=== PATIENT | female | born 1970 | race African-American/Black ===

== ENCOUNTER 2018-11-09 01:05 | Emergency (ER) | payer OTHER ==
[2018-11-09 01:11] VITALS: BP 147/91; PULSE 81; TEMP 98.2; BMI 27.0
--- NOTE | 2018-11-09 01:14 | PDOC ---
History of Present Illness - General Chief Complaint: Allergic Reaction Stated Complaint: LIP SWELLING Time Seen by Provider: 11/09/18 01:13 History Source: Patient Exam Limitations: No Limitations - History of Present Illness Initial Comments: 11/09/18 01:25 This is a 48-year-old female with history of hypertension who takes Lotrel for her hypertension. Patient comes in complaining of progressive swelling of her lips. Patient denies any swelling of her throat or tongue. Patient denies any history of similar symptoms in the past. Patient said symptoms began this afternoon she took some Benadryl about 3:00 this afternoon as well as this evening with some improvement of his symptoms but then she will much worse so comes in for evaluation. She denies any shortness of breath, rashes, itching or any other complaints. Allergies: None Past Medical History: none Social history: Lives with family. No smoking. No alcohol. No illicit drugs. Surgical history: None General: No fevers or chills, no weakness, no weight loss HEENT: No change in vision. No sore throat,. No ear pain, angioedema of the lips CardioVascular: no chest discomfort. No shortness of breath Respiratory:No cough, or wheezing. Gastrointestinal: no nausea, vomiting, diarrhea or constipation, No rectal bleeding Genitourinary: No dysuria, hematuria, or frequency Musculoskeletal: No joint or muscle pain or swelling Neurologic: No headache, vertigo, dizziness or loss of consciousness Psychiatric: nor depression Skin: No rashes or easy bruising Endocrine: no increased thirst or abnormal weight change Allergic: no skin or latex allergy All other systems reviewed and normal Exam: General: Well-nourished well-developed individual, no acute distress HEENT: Throat: Normal, tonsils normal, no erythema or exudate, there is marked angioedema of the lips no angioedema of the throat or tongue Neck: Supple, no meningeal signs, no lymphadenopathy Eyes::Pupils equal reactive and round, extraocular motion intact Chest: Nontender to palpation Cardiac: S1-S2 normal, regular rate and rhythm, no murmurs rubs or gallops Respiratory: Lungs clear to auscultation bilateral Abdomen: Soft, nondistended, normal bowel sounds, there is no tenderness on palpation diffusely Extremities: Warm, dry, no cyanosis, clubbing, or edema Skin: No rashes Neuro: Alert and oriented x3, CN II - XII intact, nonfocal exam with normal strength, normal sensation, normal reflexes, normal gait, Psych: Normal mood and affect Past History - Past Medical History Allergies/Adverse Reactions: Allergies Allergy/AdvReac Type Severity Reaction Status Date / Time No Known Allergies Allergy Verified 05/01/12 20:47 Home Medications: Ambulatory Orders Methylprednisolone [Medrol Dose Aryan] 4 mg PO ASDIR #21 tablet 11/09/18 COPD: No HTN: Yes - Suicide/Smoking/Psychosocial Hx Smoking Status: No Smoking History: Never smoked Number of Cigarettes Smoked Daily: 0 *Physical Exam - Vital Signs Last Vital Signs Temp Pulse Resp BP Pulse Ox 98.2 F 81 16 147/91 100 11/09/18 01:07 11/09/18 01:07 11/09/18 01:07 11/09/18 01:07 11/09/18 01:07 Moderate Sedation - Procedure Monitoring Vital Signs: Procedure Monitoring Vital Signs Temperature 98.2 F 11/09/18 01:07 Pulse Rate 81 11/09/18 01:07 Respiratory Rate 16 11/09/18 01:07 Blood Pressure 147/91 11/09/18 01:07 O2 Sat by Pulse Oximetry (%) 100 11/09/18 01:07 *DC/Admit/Observation/Transfer Diagnosis at time of Disposition: Angioedema of lips Qualifiers: Encounter type: initial encounter Qualified Code(s): T78.3XXA - Angioneurotic edema, initial encounter - Discharge Dispostion Disposition: HOME Condition at time of disposition: Stable - Prescriptions Prescriptions: Methylprednisolone [Medrol Dose Aryan] 4 mg PO ASDIR #21 tablet - Referrals - Patient Instructions Additional Instructions: Stop taking your Lotrel and do not take any medication that has PRIL as part of its name. Call your doctor in the morning that your doctor know that you were here and that we stopped her Lotrel and see what else her doctor wants to give you for high blood pressure. You can continue the Benadryl 1 or 2 tablets every 4-6 hours if needed in addition to the Benadryl I'm sending a prescription to your pharmacy for some steroids. Get the prescription and take it as directed. Return to the emergency department immediately with ANY new, persistent or worsening symptoms. Continue any medications as previously prescribed by your physician. You should follow up with your primary doctor as soon as possible regarding today's emergency department visit. . Please make sure your doctor reviews the results of your emergency evaluation. Thank you for coming to the Emergency Department today for your care. It was a pleasure to see you today. Please note that your evaluation is INCOMPLETE until you follow-up with your doctor. - Post Discharge Activity
[2018-11-09] MEDS ORDERED: diphenhydrAMINE HCL 50 MG CAPSULE PO ONE (01:16)
[2018-11-09] MEDS ORDERED: predniSONE 20 MG TABLET (UD) PO ONE (01:16)
[2018-11-09] MEDS ORDERED: predniSONE 20 MG TABLET (UD) ONE (01:19)
[2018-11-09] MEDS ORDERED: diphenhydrAMINE HCL 50 MG CAPSULE ONE (01:19)
== END 2018-11-09 02:30 | disposition home or self-care (01) ==
LOC: FER 01:05
DX: T78.3XXA Angioneurotic edema, initial encounter (principal); I10 Essential (primary) hypertension
CPT/HCPCS: 99282-25

== ENCOUNTER 2022-05-19 17:15 | Emergency (ER) | payer OTHER ==
[2022-05-19 17:57] VITALS: BP 129/82; PULSE 59; TEMP 98.1; BMI 25.4
[2022-05-19] MEDS ORDERED: NAPROXEN 500 MG TABLET PO ONE (18:02)
[2022-05-19] MEDS ORDERED: NAPROXEN 500 MG TABLET ONE (18:34)
== END 2022-05-19 19:00 | disposition home or self-care (01) ==
LOC: FER 17:15
DX: M79.672 Pain in left foot (principal)
CPT/HCPCS: 73610-TC-LT-FY; 73630-TC-LT; 99284-25

== ENCOUNTER → 2022-07-20 | Day surgery (SDC) | payer OTHER | END | disposition home or self-care (01) | LOC: JRADUS-SUR 08:26 | PROVIDERS: ATTEND Internal Medicine Nephrology | PROC: 0H9U3ZX Drainage of Left Breast, Percutaneous Approach, Diagnostic (ICD-10-PCS; principal; 2022-07-20) | DX: C50.212 Malignant neoplasm of upper-inner quadrant of left female breast (principal); Z17.0 Estrogen receptor positive status [ER+] | CPT/HCPCS: 19083; 77065-TC; 87899; 88305-TC; 88341-TC; 88342-TC; A4648 ==